=== PATIENT | male | born 1990 ===

== ENCOUNTER 2019-05-06 11:10 | Emergency (ER) | payer OTHER ==
[2019-05-06 11:20] VITALS: BP 124/50; PULSE 51; TEMP 98; BMI 25.7
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
== END 2019-05-06 12:29 | disposition home or self-care (01) ==
LOC: JERFT 11:10
PROC: 2W3QX1Z Immobilization of Right Lower Leg using Splint (ICD-10-PCS; principal; 2019-05-06)
DX: S93.401A Sprain of unspecified ligament of right ankle, initial encounter (principal); X58.XXXA Exposure to other specified factors, initial encounter; Y93.9 Activity, unspecified
CPT/HCPCS: 73610-TC-RT-FY; 99281-25

== ENCOUNTER 2019-12-26 23:14 | Emergency (ER) | payer OTHER ==
[2019-12-26 23:29] VITALS: BP 124/70; TEMP 97.1; BMI 25.7
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
[2019-12-26] MEDS ORDERED: ONDANSETRON *ODT* 4 MG TABLET SL ONE (23:54)
[2019-12-26] MEDS ORDERED: ONDANSETRON *ODT* 4 MG TABLET ONE (23:59)
[2019-12-27 00:30] LABS: ARTERIAL BLD GAS O2 SATURATION 98.3 mmHg (95-98); ARTERIAL BLOOD GAS BASE EXCESS -1.5 mmol/L (-2-2); ARTERIAL BLOOD GAS PO2 124.3 mmHg (80-100); ARTERIAL BLOOD GAS pH 7.354 (7.350-7.450)
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
[2019-12-27 01:24] VITALS: PULSE 60
== END 2019-12-27 01:24 | disposition home or self-care (01) ==
LOC: JER 23:14
DX: R11.0 Nausea (principal)
CPT/HCPCS: 36600; 82375; 82803; 99283-25; Q0162

== ENCOUNTER 2020-09-20 14:10 | Emergency (ER) | payer OTHER ==
[2020-09-20 14:20] VITALS: BP 104/59; PULSE 68; TEMP 97.9; BMI 23.7
[2020-09-20] MEDS ORDERED: KETOROLAC TROMETHAMINE 30 MG/1 ML VIAL IM ONE (14:45)
[2020-09-20] MEDS ORDERED: METHOCARBAMOL 500 MG TABLET PO ONE (14:45)
[2020-09-20] MEDS ORDERED: KETOROLAC TROMETHAMINE 30 MG/1 ML VIAL ONE (14:48)
== END 2020-09-20 15:09 | disposition home or self-care (01) ==
LOC: JERFT 14:10
PROC: 3E0233Z Introduction of Anti-inflammatory into Muscle, Percutaneous Approach (ICD-10-PCS; principal; 2020-09-20)
DX: S46.911A Strain of unspecified muscle, fascia and tendon at shoulder and upper arm level, right arm, initial encounter (principal)
CPT/HCPCS: 99284-25

== ENCOUNTER 2021-02-08 19:05 | Emergency (ER) | payer OTHER ==
[2021-02-08 19:53] VITALS: BP 112/57; PULSE 56; TEMP 98.3; BMI 25.0
[2021-02-08] MEDS ORDERED: IBUPROFEN 600 MG TABLET (FP) PO ONE ×2 (20:04→20:06)
== END 2021-02-08 20:50 | disposition home or self-care (01) ==
LOC: JERFT 19:05 → JER 19:05 → JERFT 20:50
DX: S93.402A Sprain of unspecified ligament of left ankle, initial encounter (principal); X50.9XXA Other and unspecified overexertion or strenuous movements or postures, initial encounter
CPT/HCPCS: 73610-TC-LT-FY; 73630-TC-LT; 99283-25

== ENCOUNTER 2021-08-28 19:24 | Emergency (ER) | payer OTHER ==
[2021-08-28 19:30] VITALS: BP 137/68; PULSE 78; TEMP 98.1; BMI 25.7
== END 2021-08-28 21:16 | disposition home or self-care (01) ==
LOC: JERFT 19:24
DX: S96.912A Strain of unspecified muscle and tendon at ankle and foot level, left foot, initial encounter (principal); W18.49XA Other slipping, tripping and stumbling without falling, initial encounter
CPT/HCPCS: 73610-TC-LT-FY; 73630-TC-LT; 99283-25

== ENCOUNTER 2022-05-07 12:03 | Emergency (ER) | payer OTHER ==
[2022-05-07 12:45] VITALS: BP 125/71; PULSE 91; RESP 18; TEMP 98.1; BMI 25.0
[2022-05-07] MEDS ORDERED: KETOROLAC TROMETHAMINE 60 MG/2 ML VIAL IM ONE (13:04)
[2022-05-07] MEDS ORDERED: METHOCARBAMOL 500 MG TABLET PO ONE (13:04)
[2022-05-07] MEDS ORDERED: LIDOCAINE 5% TOPICAL PATCH TP ONE (13:04)
[2022-05-07] MEDS ORDERED: LIDOCAINE 5% TOPICAL PATCH ONE (13:16)
[2022-05-07] MEDS ORDERED: METHOCARBAMOL 500 MG TABLET ONE (13:16)
[2022-05-07] MEDS ORDERED: KETOROLAC TROMETHAMINE 60 MG/2 ML VIAL ONE (13:16)
[2022-05-07] MEDS ORDERED: LIDOCAINE PATCH REMOVAL MC ONE (22:00)
== END 2022-05-07 16:24 | disposition home or self-care (01) ==
LOC: JERFT 12:03 → JER 12:03 → JERFT 16:24
PROC: 3E0233Z Introduction of Anti-inflammatory into Muscle, Percutaneous Approach (ICD-10-PCS; principal; 2022-05-07)
DX: M54.50 Low back pain, unspecified (principal)
CPT/HCPCS: 72100-TC-FY; 72131-TC; 99284-25

== ENCOUNTER 2022-12-01 03:47 | Emergency (ER) | payer OTHER ==
[2022-12-01 03:57] VITALS: BP 122/77; PULSE 69; RESP 18; TEMP 97.7
[2022-12-01 04:15] VITALS: BMI 25.7
[2022-12-01] MEDS ORDERED: ACETAMINOPHEN 500 MG TABLET (FP) PO ONE (04:30)
[2022-12-01] MEDS ORDERED: ACETAMINOPHEN 500 MG TABLET (FP) ONE (04:33)
[2022-12-01] MEDS ORDERED: BACITRACIN ZINC 15 GM TUBE TOPICAL OINTMENT TP ONE (05:31)
[2022-12-01] MEDS ORDERED: BACITRACIN 0.9 GM PACKET ONE (05:33)
== END 2022-12-01 06:21 | disposition home or self-care (01) ==
LOC: JER 03:47
DX: S69.92XA Unspecified injury of left wrist, hand and finger(s), initial encounter (principal); M79.642 Pain in left hand; X00.0XXA Exposure to flames in uncontrolled fire in building or structure, initial encounter; W22.8XXA Striking against or struck by other objects, initial encounter; Y93.9 Activity, unspecified; Y92.038 Other place in apartment as the place of occurrence of the external cause
CPT/HCPCS: 73130-TC-LT-FY; 99283-25

== ENCOUNTER 2023-05-31 11:38 | Emergency (ER) | payer OTHER ==
[2023-05-31 11:48] VITALS: BP 117/63; PULSE 53; RESP 18; TEMP 98.4; BMI 25.7
[2023-05-31] MEDS ORDERED: LIDOCAINE 5% TOPICAL PATCH TP ONE (12:53)
[2023-05-31] MEDS ORDERED: METHOCARBAMOL 500 MG TABLET PO ONE (12:53)
[2023-05-31] MEDS ORDERED: KETOROLAC TROMETHAMINE 30 MG/1 ML VIAL IM ONE (12:53)
[2023-05-31] MEDS ORDERED: LIDOCAINE 4% PATCH TP ONE (13:01)
[2023-05-31] MEDS ORDERED: METHOCARBAMOL 500 MG TABLET ONE (13:01)
[2023-05-31] MEDS ORDERED: KETOROLAC TROMETHAMINE 30 MG/1 ML VIAL ONE (13:02)
[2023-05-31] MEDS ORDERED: LIDOCAINE PATCH REMOVAL MC SCH (22:00)
== END 2023-05-31 14:33 | disposition home or self-care (01) ==
LOC: JERFT 11:38
PROC: 3E0233Z Introduction of Anti-inflammatory into Muscle, Percutaneous Approach (ICD-10-PCS; principal; 2023-05-31)
DX: M54.50 Low back pain, unspecified (principal)
CPT/HCPCS: 72131-TC; 99284-25